=== PATIENT | female | born 1995 | race Hispanic/Latino ===

== ENCOUNTER 2017-11-23 18:53 | Emergency (ER) | payer BC, OTHER ==
[2017-11-23] MEDS ORDERED: Oseltamivir 75 MG CAP ONE (19:35)
[2017-11-23] MEDS ORDERED: Ibuprofen 800 MG TAB ONE (19:35)
[2017-11-23] MEDS ORDERED: Ondansetron ODT 4 MG TAB ONE (19:35)
== END 2017-11-23 19:39 | disposition home or self-care (01) ==
LOC: BURERS 18:53
DX: J11.1 Influenza due to unidentified influenza virus with other respiratory manifestations (principal)
CPT/HCPCS: 99283; Q0162